=== PATIENT | male | born 1970 | race Caucasian/White ===

== ENCOUNTER 2020-06-18 06:34 | Observation (INO) ==
[~2020-06-18 06:34] MED LIST: Buffered Lidocaine 1% SYRIN 1 ml INTRADERM ONE; Lactated Ringers 1000 ml BAG 1,000 ML IV SCH
[2020-06-18] MEDS ORDERED: Propofol 10 MG/ML 20 ML BTL ONE ×2 (06:44→07:10)
[2020-06-18] MEDS ORDERED: Midazolam 2 mg/2 ml VIAL 1 mg/ml 2 ml VIAL (2 mg) ONE ×2 (06:44→07:58)
[2020-06-18] MEDS ORDERED: ceFAZolin 2 GM PREMIX 2 GM/50 ML BAG ONE (06:52)
[2020-06-18] MEDS ORDERED: ROPIVACAINE 5 MG/ML 30 ML BTL (0.5%) ONE (07:36)
[2020-06-18] MEDS ORDERED: Buffered Lidocaine 1% SYRIN 1 ml INTRADERM ONE (07:39)
[2020-06-18] MEDS ORDERED: Naloxone 0.4 mg VIAL 0.4 mg/ml 1 ml VIAL IV PRN (07:42)
[2020-06-18] MEDS ORDERED: HYDROmorphone 1 MG/1 ML SYRINGE IV PRN (07:42)
[2020-06-18] MEDS ORDERED: Ondansetron 4 mg VIAL 2 MG/ML 2 ml VIAL IV PRN ×2 (07:42→10:26)
[2020-06-18] MEDS ORDERED: Bupivacaine 0.5% SDV PF 30ML VIAL ONE (07:49)
[2020-06-18] MEDS ORDERED: fentaNYL 250 mcg/5 ml 50 MCG/ML 5 ml VIAL (250 MCG) ONE (08:07)
[2020-06-18] MEDS ORDERED: EPHEDrine (Pressors) 50 MG/ML VIAL ONE (08:29)
[2020-06-18] MEDS ORDERED: Phenylephrine 40 mcg/mL 10mL (400mcg) SYRINGE ONE (08:29)
[2020-06-18] MEDS ORDERED: Ondansetron 4 mg VIAL 2 MG/ML 2 ml VIAL ONE ×2 (08:34→12:05)
[2020-06-18] MEDS ORDERED: Dexamethasone IV 4 MG/ML VIAL 1 ml VIAL ONE (08:34)
[2020-06-18] MEDS ORDERED: Rocuronium 50 mg VIAL 10 mg/ml 5 ml VIAL (50 mg) ONE (08:58)
[2020-06-18] MEDS ORDERED: Morphine 2 MG/ML SYRINGE IV PRN (10:26)
[2020-06-18] MEDS ORDERED: Lactulose 30 ml UDC PO PRN (10:26)
[2020-06-18] MEDS ORDERED: diPHENhydraMINE 25 mg TAB PO PRN (10:26)
[2020-06-18] MEDS ORDERED: Ondansetron ODT 4 mg TAB 4 MG TAB PO PRN (10:26)
[2020-06-18] MEDS ORDERED: oxyCODONE/Acetamin 5/325 mg TAB PO PRN (10:26)
[2020-06-18] MEDS ORDERED: Magnesium Hydroxide LIQ 30 ML UDC PO PRN (10:26)
[2020-06-18] MEDS ORDERED: diPHENhydraMINE IV 50 MG/ML 1 ml VIAL (BENADRYL) IV PRN (10:26)
[2020-06-18] MEDS ORDERED: HYDROmorphone 1 MG/1 ML SYRINGE ONE (10:37)
[2020-06-18] MEDS ORDERED: fentaNYL 100 mcg/2 ml 50 MCG/ML VIAL ONE (10:37)
[2020-06-18] MEDS: fentaNYL 100 mcg/2 ml 50 MCG/ML VIAL IV PRN ×4 (10:38→11:09)
[2020-06-18] MEDS ORDERED: Lactated Ringers 1000 ml BAG 1,000 ML IV SCH (11:00)
[2020-06-18] MEDS ORDERED: oxyCODONE/Acetamin 5/325 mg TAB ONE (11:07)
[2020-06-18] MEDS ORDERED: Prochlorperazine 5 mg/ml 2 ml VIAL (10 mg) IV PRN (14:23)
[2020-06-18] MEDS ORDERED: ceFAZolin 1 GM ADVAN 1 GM in NS 0.9% 50 ML 50 ML IVPB SCH (16:00)
[2020-06-18 16:01] VITALS: BP 105/67
[2020-06-18] MEDS ORDERED: Magnesium Hydroxide LIQ 30 ML UDC PO SCH (21:00)
[2020-06-19] MEDS ORDERED: Amphetamine/Dextroam ER 10(NF) 10 mg CAP.ER PO SCH (09:00)
[2020-06-19] MEDS ORDERED: Vitamin THERAPEUTIC TAB PO SCH (09:00)
== END 2020-06-18 17:30 | disposition home or self-care (01) ==
LOC: OR 06:34 → SSU 06:34 → EDSTATUS 08:00
PROVIDERS: ADMIT Orthopaedic Surgery Adult Reconstructive Orthopaedic Surgery; ATTEND Orthopaedic Surgery Adult Reconstructive Orthopaedic Surgery

== ENCOUNTER 2023-12-14 05:52 | Observation (INO) ==
[~2023-12-14 05:52] MED LIST changes: -Buffered Lidocaine 1% SYRIN 1 ml INTRADERM ONE; -Lactated Ringers 1000 ml BAG 1,000 ML IV SCH; +Naloxone 0.4 mg VIAL 0.4 mg/ml 1 ml VIAL IV PRN; +Ondansetron 4 mg VIAL 2 MG/ML 2 ml VIAL IV PRN; +Scopolamine 1 mg/72hr PATCH TRANSDERM ONE
[2023-12-14] MEDS ORDERED: Tranexamic Acid 1 GM/100ML BAG 2,000 MG/200 ML BAG IV ONE (06:21)
[2023-12-14] MEDS ORDERED: ceFAZolin 2 GM in NS PREMIX 2 GM/100 ML BAG IVPB ONE (06:21)
[2023-12-14] MEDS ORDERED: Ondansetron 4 mg VIAL 2 MG/ML 2 ml VIAL ONE (06:31)
[2023-12-14] MEDS ORDERED: Dexamethasone IV 4 MG/ML VIAL 1 ml VIAL ONE (06:31)
[2023-12-14] MEDS ORDERED: Lidocaine 2% PF 5 ML VIAL ONE (06:31)
[2023-12-14] MEDS ORDERED: fentaNYL 250 mcg/5 ml 50 MCG/ML 5 ml VIAL (250 MCG) ONE (06:31)
[2023-12-14] MEDS ORDERED: Midazolam 2 mg/2 ml VIAL 1 mg/ml 2 ml VIAL (2 mg) ONE (06:31)
[2023-12-14 06:50] LABS: Rapid COVID-19 Molecular Undetected (Undetected)
[2023-12-14] MEDS: Lactated Ringers 1000 ml BAG 1,000 ML IV SCH ×2 (06:50→13:29)
[2023-12-14] MEDS: Buffered Lidocaine 1% SYRIN 1 ml INTRADERM ONE (06:51)
[2023-12-14] MEDS ORDERED: Rocuronium 50 mg VIAL 10 mg/ml 5 ml VIAL (50 mg) ONE ×2 (06:53→09:18)
[2023-12-14] MEDS ORDERED: Propofol 10 MG/ML 20 ML BTL ONE (06:53)
[2023-12-14] MEDS ORDERED: ROPIVACAINE 5 MG/ML 30 ML BTL (0.5%) ONE (07:11)
[2023-12-14] MEDS ORDERED: Ondansetron 4 mg VIAL 2 MG/ML 2 ml VIAL IV PRN (07:40)
[2023-12-14] MEDS ORDERED: Ondansetron ODT 4 mg TAB 4 MG TAB PO PRN (07:40)
[2023-12-14] MEDS ORDERED: Magnesium Hydroxide LIQ 30 ML UDC PO PRN (07:40)
[2023-12-14] MEDS ORDERED: Calcium Carb (TUMS) 500 mg CHEW TAB PO PRN (07:40)
[2023-12-14] MEDS ORDERED: Lactulose 30 ml UDC PO PRN (07:40)
[2023-12-14] MEDS ORDERED: Morphine 2 MG/ML SYRINGE IV PRN (07:40)
[2023-12-14] MEDS ORDERED: HYDROmorphone 0.5 MG/0.5 ML SYRINGE ONE (09:29)
[2023-12-14] MEDS ORDERED: fentaNYL 100 mcg/2 ml 50 MCG/ML VIAL ONE (11:20)
[2023-12-14] MEDS: fentaNYL 100 mcg/2 ml 50 MCG/ML VIAL IV PRN (11:25)
[2023-12-14] MEDS: Acetaminophen IV 1 GM/100ML 1,000 MG/100 ML BAG IV ONE (13:33)
[2023-12-14] MEDS: Magnesium Hydroxide LIQ 30 ML UDC PO SCH (13:33)
[2023-12-14] MEDS: Vitamin THERAPEUTIC TAB PO SCH (13:33)
[2023-12-14 14:39] VITALS: BP 130/75
[2023-12-14] MEDS: ceFAZolin 2 GM in NS PREMIX 2 GM/100 ML BAG IVPB SCH (16:18)
== END 2023-12-14 17:10 | disposition home or self-care (01) ==
LOC: SSU 05:52 → OR 05:52 → EDSTATUS 14:15
PROVIDERS: ADMIT Orthopaedic Surgery Adult Reconstructive Orthopaedic Surgery; ATTEND Orthopaedic Surgery Adult Reconstructive Orthopaedic Surgery